=== PATIENT | male | born 1930 | race Caucasian/White ===

== ENCOUNTER 2017-11-02 08:19 | Emergency (ER) | payer MEDICARE, BC ==
[2017-11-02] MEDS ORDERED: Aspirin TAB* 325 MG PO ONE (09:14)
[2017-11-02 09:54] LABS: ABS Basophils 0.1 10^3/ul (0-0.2); ABS Eosinophils 0.1 10^3/ul (0-0.6); ABS Lymphocytes 0.8 10^3/ul (1.0-4.8); ABS Monocytes 0.6 10^3/ul (0-0.8); ABS Neutrophils 3.6 10^3/ul (1.5-7.7); ABS Nucleated RBC 0 10^3/ul; Hematocrit 33 % (42-52); Hemoglobin 11.1 g/dl (14.0-18.0); Mean Corpuscular HGB Conc 34 g/dl (31-36); Mean Corpuscular Hemoglobin 37 pg (27-31); Mean Corpuscular Volume 109 fL (80-94); Mean Platelet Volume 8 um3 (7.4-10.4); Nucleated Red Blood Cells % 0.1; Platelet Count 268 10^3/ul (150-450); Red Blood Count 2.99 10^6/ul (4.0-5.4); Red Cell Distribution Width 14 % (10.5-15); White Blood Count 5.3 10^3/ul (3.5-10.8)
--- NOTE | 2017-11-02 09:58 | RAD ---
Indication: Chest pain. Comparison: October 10, 2012 Technique: Upright AP 0922 hours Report: Suggestion of moderate subpulmonic RIGHT pleural effusion with associated basilar atelectasis. Inflammatory infiltrate at the opacified RIGHT lung base is not excluded. Clear LEFT lung and pleural space. Negative for pneumothorax. Negative for cardiomegaly. No significant abnormality of the central pulmonary vasculature accounting for RIGHT lung volume loss. IMPRESSION: Suggestion of moderate subpulmonic RIGHT pleural effusion with associated basilar atelectasis. Inflammatory infiltrate at the opacified RIGHT lung base is not excluded.
[2017-11-02 10:01] LABS: EGFR Non-African American 79.4 (>60)
[2017-11-02 10:03] LABS: INR 1.59 (0.77-1.02)
[2017-11-02 12:55] VITALS: BP 138/51
--- NOTE | 2017-11-02 17:45 | ED ---
Heriberto Bonilla Angela, scribed for Dionte Batres MD on 11/02/17 at 0856 . HPI Chest Pain - HPI Summary HPI Summary: This pt is a 86 y/o male presenting to [facility] c/o chest pain since 07:00 this morning. Pt notes he was already awake at onset of his chest pain. He describes his pain as pressure. He reports he needs to belch a lot. His chest pain is aggravated with movement. His pain is alleviated with putting pressure on chest. Denies nausea, diaphoresis, lightheadedness, LE swelling. Notes he has never had pain like this before. He has not taking anything for this chest pain. Pt is a pt of Dr. Hernandez'erick for "cardiac issues." He saw rn managed care last in early fall of 2016, had an EKG done. PCP is ILENE Mackay. - History of Current Complaint Chief Complaint: EDChestPainROMI Time Seen by Provider: 11/02/17 08:46 Hx Obtained From: Patient Onset/Duration: Started Hours Ago, Still Present Timing: Lasting Hours Current Severity: Moderate Pain Intensity: 4 Pain Scale Used: 0-10 Numeric Chest Pain Location: Diffuse Chest Pain Radiates: No Character: Pressure/Squeezing - Pressure Aggravating Factor(s): Movement Alleviating Factor(s): Other: - putting pressure on chest Associated Signs and Symptoms: Positive: Chest Pain, Other: - POS: belching. Negative: Lightheadedness, Diaphoresis, Nausea, Calf Pain/Swelling - Allergy/Home Medications Allergies/Adverse Reactions: Allergies Allergy/AdvReac Type Severity Reaction Status Date / Time No Known Allergies Allergy Verified 11/02/17 08:37 Home Medications: Home Medications Aspirin EC Low Dose* [Ecotrin EC Low Dose 81 MG*] 81 mg PO DAILY 11/02/17 [ History Confirmed 11/02/17] PMH/Surg Hx/FS Hx/Imm Hx Endocrine/Hematology History: Denies: Hx Diabetes Cardiovascular History: Reports: Hx Atrial Fibrillation, Hx Hypercholesterolemia , Hx Hypertension Infectious Disease History: No Infectious Disease History: Denies: Traveled Outside the [place] in Last 30 Days - Family History Known Family History: Negative: Cardiac Disease, Hypertension, Diabetes - Social History Alcohol Use: Rare Substance Use Type: Reports: None Smoking Status (MU): Never Smoked Tobacco Review of Systems Negative: Fever, Chills, Skin Diaphoresis Positive: Chest Pain Gastrointestinal: Other - belching Negative: Vomiting, Nausea Negative: Edema Neurological: Other - NEG: lightheadedness All Other Systems Reviewed And Are Negative: Yes Physical Exam - Summary Physical Exam Summary: Appearance: The patient is well-nourished in no acute distress and in no acute pain. Skin: The skin is warm and dry and skin color reflects adequate perfusion. HEENT: The head is normocephalic and atraumatic. The pupils are equal and reactive. The conjunctivae are clear and without drainage. Nares are patent and without drainage. Mouth reveals moist mucous membranes and the throat is without erythema and exudate. The external ears are intact. The ear canals are patent and without drainage. The tympanic membranes are intact. Neck: the neck is supple with full range of motion and non-tender. There are no carotid bruits. There is no neck vein distension. Respiratory: Chest is non-tender. Lungs are clear to auscultation and breath sounds are symmetrical and equal. Cardiovascular: Heart is regular rate and rhythm. Split S1 sound. There is no murmur or rub auscultated. There is no peripheral edema and pulses are symmetrical and equal. Abdomen: The abdomen is soft and non-tender. There are normal bowel sounds heard in all four quadrants and there is no organomegaly palpated. Musculoskeletal: There is no back tenderness noted. Extremities are non-tender with full range of motion. There is good capillary refill. There is no peripheral edema or calf tenderness elicited. Neurological: Patient is alert and oriented to person, place and time. The patient has symmetrical motor strength in all four extremities. Cranial nerves are grossly intact. Deep tendon reflexes are symmetrical and equal in all four extremities. Psychiatric: The patient has an appropriate affect and does not exhibit any anxiety or depression. Triage Information Reviewed: Yes Vital Signs On Initial Exam: Initial Vitals Temp Pulse Resp BP Pulse Ox 97.5 F 55 16 182/74 100 11/02/17 08:28 11/02/17 08:28 11/02/17 08:28 11/02/17 08:28 11/02/17 08:28 Vital Signs Reviewed: Yes Diagnostics - Vital Signs Vital Signs Temp Pulse Resp BP Pulse Ox 11/02/17 08:30 58 17 162/79 96 11/02/17 08:28 97.5 F 68 11 182/74 94 - Laboratory Lab Results: Lab Results 11/02/17 11/02/17 11/02/17 Range/Units 09:34 09:34 09:34 WBC 5.3 (3.5-10.8) 10^3/ul RBC 2.99 L (4.0-5.4) 10^6/ul Hgb 11.1 L (14.0-18.0) g/dl Hct 33 L (42-52) % MCV 109 H (80-94) fL MCH 37 H (27-31) pg MCHC 34 (31-36) g/dl RDW 14 (10.5-15) % Plt Count 268 (150-450) 10^3/ul MPV 8 (7.4-10.4) um3 Neut % (Auto) 68.8 (38-83) % Lymph % (Auto) 15.0 L (25-47) % Bleckley % (Auto) 12.1 H (1-9) % Eos % (Auto) 2.0 (0-6) % Baso % (Auto) 2.1 H (0-2) % Absolute Neuts (auto) 3.6 (1.5-7.7) 10^3/ul Absolute Lymphs (auto) 0.8 L (1.0-4.8) 10^3/ul Absolute Monos (auto) 0.6 (0-0.8) 10^3/ul Absolute Eos (auto) 0.1 (0-0.6) 10^3/ul Absolute Basos (auto) 0.1 (0-0.2) 10^3/ul Absolute Nucleated RBC 0 10^3/ul Nucleated RBC % 0.1 Differential Comment Cancelled Smudge Cells Cancelled Toxic Granulation Cancelled Dohle Bodies Cancelled Platelet Morphology Cancelled Giant Platelets Cancelled Polychromasia Cancelled Hypochromasia Cancelled Basophilic Stippling Cancelled Anisocytosis Cancelled Microcytosis Cancelled Macrocytosis Cancelled Spherocytes Cancelled Sickle Cells Cancelled Target Cells Cancelled Tear Drop Cells Cancelled Stomatocytes Cancelled Mcnamara-[place] Bodies Cancelled Kirstin Cells Cancelled Elliptocytes Cancelled Acanthocytes (Spur) Cancelled Rouleaux Cancelled Schistocytes Cancelled INR (Anticoag Therapy) (0.77-1.02) Sodium 136 (133-145) mmol/L Potassium 4.4 (3.5-5.0) mmol/L Chloride 106 (101-111) mmol/L Carbon Dioxide 25 (22-32) mmol/L Anion Gap 5 (2-11) mmol/L BUN 16 (6-24) mg/dL Creatinine 0.91 (0.67-1.17) mg/dL Est GFR ( Amer) 102.1 (>60) Est GFR (Non-Af Amer) 79.4 (>60) BUN/Creatinine Ratio 17.6 (8-20) Glucose 117 H (70-100) mg/dL Lactic Acid 0.9 (0.5-2.0) mmol/L Calcium 9.0 (8.6-10.3) mg/dL Total Bilirubin 1.40 H (0.2-1.0) mg/dL AST 16 (13-39) U/L ALT 14 (7-52) U/L Alkaline Phosphatase 82 (34-104) U/L Troponin I 0.00 (<0.04) ng/mL Total Protein 6.4 (6.4-8.9) g/dL Albumin 4.0 (3.2-5.2) g/dL Globulin 2.4 (2-4) g/dL Albumin/Globulin Ratio 1.7 (1-3) 11/02/17 11/02/17 Range/Units 09:34 12:11 WBC (3.5-10.8) 10^3/ul RBC (4.0-5.4) 10^6/ul Hgb (14.0-18.0) g/dl Hct (42-52) % MCV (80-94) fL MCH (27-31) pg MCHC (31-36) g/dl RDW (10.5-15) % Plt Count (150-450) 10^3/ul MPV (7.4-10.4) um3 Neut % (Auto) (38-83) % Lymph % (Auto) (25-47) % Bleckley % (Auto) (1-9) % Eos % (Auto) (0-6) % Baso % (Auto) (0-2) % Absolute Neuts (auto) (1.5-7.7) 10^3/ul Absolute Lymphs (auto) (1.0-4.8) 10^3/ul Absolute Monos (auto) (0-0.8) 10^3/ul Absolute Eos (auto) (0-0.6) 10^3/ul Absolute Basos (auto) (0-0.2) 10^3/ul Absolute Nucleated RBC 10^3/ul Nucleated RBC % Differential Comment Smudge Cells Toxic Granulation Dohle Bodies Platelet Morphology Giant Platelets Polychromasia Hypochromasia Basophilic Stippling Anisocytosis Microcytosis Macrocytosis Spherocytes Sickle Cells Target Cells Tear Drop Cells Stomatocytes Mcnamara-[place] Bodies Kirstin Cells Elliptocytes Acanthocytes (Spur) Rouleaux Schistocytes INR (Anticoag Therapy) 1.59 H (0.77-1.02) Sodium (133-145) mmol/L Potassium (3.5-5.0) mmol/L Chloride (101-111) mmol/L Carbon Dioxide (22-32) mmol/L Anion Gap (2-11) mmol/L BUN (6-24) mg/dL Creatinine (0.67-1.17) mg/dL Est GFR ( Amer) (>60) Est GFR (Non-Af Amer) (>60) BUN/Creatinine Ratio (8-20) Glucose (70-100) mg/dL Lactic Acid (0.5-2.0) mmol/L Calcium (8.6-10.3) mg/dL Total Bilirubin (0.2-1.0) mg/dL AST (13-39) U/L ALT (7-52) U/L Alkaline Phosphatase (34-104) U/L Troponin I 0.00 (<0.04) ng/mL Total Protein (6.4-8.9) g/dL Albumin (3.2-5.2) g/dL Globulin (2-4) g/dL Albumin/Globulin Ratio (1-3) Result Diagrams: 11/02/17 09:34 11/02/17 09:34 Lab Statement: Any lab studies that have been ordered have been reviewed, and results considered in the medical decision making process. - Radiology Chest XR Xray Interpretation: Positive (See Comments) - IMPRESSION: Suggestoin of moderate subpulmonic RIGHT pleural effusion with associated basilar atelectasis. Inflammatory infiltrate at the opacified RIGHT lung base is not excluded. Dr. Batres has reviewed this radiology report. Radiology Interpretation Completed By: Radiologist - EKG 08:23 Cardiac Rate: Bradycardia EKG Rhythm: Sinus Bradycardia - at 57 bpm Ectopy: PACs Chest Pain Course/Dx - Course Course Of Treatment: Mr. Hall presented with a left chest pressure for several hours. He denied any associated symptoms except the feeling that he needed to belch. The were no exacerbating or relieving factors. His initial W/ U was negative and I spoke with Dr. Hernandez who has seen him in the past. He was of the opinion that Mr. Hall could be safely D/C'd if se got a second troponin. The second trop was also 0 and Mr. Hall did feel better. He agreed to take it easy, F/U with Dr. Hernandez by calling tomorrow with his condition and return for any worsening or new symptoms. - Diagnoses Provider Diagnoses: Chest pain - Provider Notifications Discussed Care Of Patient With: Dev Hernandez Time Discussed With Above Provider: 10:26 Instructed by Provider To: Other - I discussed pt care with Dr. Hernandez, rn managed care. Discharge - Discharge Plan Condition: Stable Disposition: HOME Patient Education Materials: Chest Pain (ED) Referrals: Codie Pena [Primary Care Provider] - Dev Hernandez MD [Medical Doctor] - Additional Instructions: Please follow up with your rn managed care, Dr. Hernandez. RETURN TO THE ED FOR ANY WORSENING SYMPTOMS. The documentation as recorded by the Heriberto ramirez Angela accurately reflects the service I personally performed and the decisions made by me, Dionte Batres MD.
== END 2017-11-02 12:55 | disposition home or self-care (01) ==
LOC: ED 08:19
DX: R07.9 Chest pain, unspecified (principal)
CPT/HCPCS: 36415; 71045; 80053; 83605; 84484; 85025; 85610; 93005; 99284

== ENCOUNTER 2018-02-26 17:44 | Emergency (ER) | payer MEDICARE, BC ==
[2018-02-26 17:52] VITALS: BP 163/65
--- NOTE | 2018-02-26 18:00 | UC ---
Laceration HPI - HPI Summary HPI Summary: 87 y/o male presents to the urgent care accompany by c/o cutting his Rt arm s/p fall while going over a fence about 1 hr ago. Pt reports he was doing the yard work when he decided to go over the fence and fell on top of a tree branch and cut his Rt arm in different areas. Bedding stopped w/ pressure. Pain is 1/10 and he has FROM of his RT arm and RT elbow. Pt can't recalled when was his last Tetanus vaccine. Pt denies numbness or tinglin sensation over his arm or hand, SOB, chest pain, abdominal pain, N/V/D - History Of Current Complaint Chief Complaint: UCLaceration Stated Complaint: ARM LACERATION Time Seen by Provider: 02/26/18 17:58 Hx Obtained From: Patient Laceration Location: Arm - RT arm Mechanism Of Injury: Sharp Trauma Onset/Duration: Sudden Onset, Lasting Hours - 1 hr Severity: Mild Pain Intensity: 1 Pain Scale Used: 0-10 Numeric Aggravating Factors: Other: - touch Related History: Dominant Hand Right - Allergies/Home Medications Allergies/Adverse Reactions: Allergies Allergy/AdvReac Type Severity Reaction Status Date / Time No Known Allergies Allergy Verified 02/26/18 17:53 PMH/Surg Hx/FS Hx/Imm Hx Previously Healthy: Yes Endocrine History: Dyslipidemia Cardiovascular History: Cardiac Disease, Hypertension - Surgical History Surgical History: None - Family History Known Family History: Positive: None - Pt denies FMHX Negative: Cardiac Disease, Hypertension, Diabetes - Social History Occupation: Retired Lives: With Family Alcohol Use: Rare Substance Use Type: None Smoking Status (MU): Never Smoked Tobacco - Immunization History Most Recent Tetanus Shot: unknown Review of Systems Constitutional: Negative Skin: Bruising, Other - 4 superficial lacerations on the Rt arm s/p fall Eyes: Negative ENT: Negative Respiratory: Negative Cardiovascular: Negative Gastrointestinal: Negative Genitourinary: Negative Motor: Negative Neurovascular: Negative Musculoskeletal: Negative Neurological: Negative Psychological: Negative Is Patient Immunocompromised?: No All Other Systems Reviewed And Are Negative: Yes Physical Exam - Summary Physical Exam Summary: Vital Signs Reviewed: Yes General: well developed, well nourished female sitting in the examining table w/ o any apparent distress Eye Exam: Normal Eyes: Positive: Conjunctiva Clear - PERRLA, EOMI, fundi grossly normal ENT: Positive: Normal ENT inspection, Hearing grossly normal, Pharynx normal, TMs normal Neck: Positive: Supple, Nontender, No Lymphadenopathy Respiratory: Positive: Chest non-tender, Lungs clear, Normal breath sounds, No respiratory distress Cardiovascular: Positive: RRR, No Murmur, Pulses Normal, Brisk Capillary Refill Abdomen Description: Positive: Nontender, No Organomegaly, Soft. Negative: CVA Tenderness (R), CVA Tenderness (L) Bowel Sounds: Positive: Present Musculoskeletal: Positive: Strength Intact, ROM Intact, No Edema Neurological: Positive: Alert, Muscle Tone Normal Psychological Exam: Normal Skin: Positive: RT distal arm from ventral to dorsal side w/ 4 superficial lacerations w/ irregular shapes, about 4.0cm , 3.5cm , 4.5cm and 2.0cm in size w / surrounding abrasions,ecchymosis and bruising, mild tenderness to palpation. Some of them have skin avulsion. FROM of RT elbow, wrist, hand and shoulder. Sensation intact, capillary refill brisk, and pulses WNL. Triage Information Reviewed: Yes Vital Signs: Initial Vital Signs Temp 98.2 F 02/26/18 17:50 Pulse 51 02/26/18 17:50 Resp 18 02/26/18 17:50 BP 163/65 02/26/18 17:50 Pulse Ox 98 02/26/18 17:50 Laceration Repair - Laceration Repair 1 Description: Irregular - RT distal arm w/ 4 superficial lacerations irrgular in shape. Some w/ skin avulsion Laceration Size After Repair: Length (cm) - 4.0cm, 3.5cm, 4.5cm , 2.0cm Modified For Repair: No Cleansing Completed Via Routine Prep: Yes Irrigation With Pressure Irrigation Device: Yes Closure Material: Skin Adhesive, SteriStrips Closure Method: Single Layer Suture Of: Skin Laceration Course/Dx - Course/Dx Course Of Treatment: 87 y/o male presents to the urgent care accompany by c/o cutting his Rt arm s/p fall while going over a fence about 1 hr ago. Pt reports he was doing the yard work when he decided to go over the fence and fell on top of a tree branch and cut his Rt arm in different areas. Bledding stopped w/ pressure. Pain is 1/10 and he has FROM of his RT arm and RT elbow. Pt can't recalled when was his last Tetanus vaccine. Pt denies numbness or tinglin sensation over his arm or hand, SOB, chest pain, abdominal pain, N/V/D. Hx obtained. RT distal arm from ventral to dorsal side w/ 4 superficial lacerations w/ irregular shapes, about 4.0cm , 3.5cm , 4.5cm and 2.0cm in size w / surrounding abrasions,ecchymosis and bruising, mild tenderness to palpation. Some of them have skin avulsion on examination. LACERATION PROCEDURE NOTE: Copious irrigation was done with saline and the wound cleaned and explored. There was no FB or deep structure injury noted. Wounds cleaned w/ saline water and then w/ Iodine swabs. Abrasions cleaned w/ sterile water and bacitracin oint applied over and then cover w/ non adhesive gauze . The skin avulsions ans superficial lacerations were closed w/ skin adhesive and steristrips and then covered w/ sterile gauze. The Pt tolerated the procedure well without adverse effects. Neurovascular intact and FROM of RT arm. Tdap ordered and applied by nurse. Pt advised to applied Bacitracin ointment over abrasions and to take Tyelenol PO for pain. Rx Keflex PO if he develops any signs of infection. Pt advised if not improvement or worsening of symptcare to return to the urgent care or f/u w/ his PCP for further management and treatment. Pt's BP is elevated today advised to decrease salt in diet, monitor BP and f/u with PCP for further management. Pt understood and agreed and left the clinic ambulating , hemodynamically stable, A&Ox3. - Differential Dx - Laceration/Wound Differental Diagnoses: Abrasion, Avulsion, Laceration, Puncture Wound, Tendon Laceration Provider Diagnoses: 1- RT arm superficial lacerations repair s/p fall. 2- RT arm abrasions s/p fall. 3- Uncontrolled HTN Discharge - Sign-Out/Discharge Documenting (check all that apply): Discharge/Admit/Transfer - D/C home - Discharge Plan Condition: Stable Disposition: HOME Prescriptions: Cephalexin CAP* [Keflex CAP*] 500 mg PO QID #28 cap Patient Education Materials: Laceration (ED), Low-Sodium Diet (ED), Skin Adhesive Care (ED) Referrals: Roxann CRANE,Codie Santos [Primary Care Provider] - 3 Days Additional Instructions: 1-Please Keep wound clean and dry and cover w/ sterile gauze 2-Take Tylenol PO q6-8hrs prn for pain or swelling. Avoid strenuous exercise or too much flexion w/ your arm 3- If you develop fever or redness around your arm please start taken antibiotic Kelfex PO sent to the pharmacy or f/u w/ your PCP for further management 4-Your BP is elevated today. please decrease salt in your diet, monitor BP and if it continues to be elevated please f/u with your PCP for further management - Billing Disposition and Condition Condition: STABLE Disposition: HOME
[2018-02-26] MEDS ORDERED: Tetan/Diph/Pertus SYR(Tdap)* 0.5 ML SYR(BOOSTRIX) use SYR IM ONE (18:16)
[2018-02-26] MEDS ORDERED: Lidocaine 2% PF * 5 ML VIAL INJ ONE (18:17)
[2018-02-26] MEDS ORDERED: Gelfoam 12-7 ADSORBABL SPONGE* 1 EA SPONGE TOPICAL ONE (18:43)
== END 2018-02-26 19:39 | disposition home or self-care (01) ==
LOC: UCEAST 17:44
DX: S51.811A Laceration without foreign body of right forearm, initial encounter (principal); S50.811A Abrasion of right forearm, initial encounter; W17.89XA Other fall from one level to another, initial encounter; Y93.H9 Activity, other involving exterior property and land maintenance, building and construction; Y92.096 Garden or yard of other non-institutional residence as the place of occurrence of the external cause; I10 Essential (primary) hypertension; E78.5 Hyperlipidemia, unspecified; I11.9 Hypertensive heart disease without heart failure; Z23 Encounter for immunization
CPT/HCPCS: 12001; 12005; 90715; 99211; A9270-GY; G0463

== ENCOUNTER 2020-06-18 15:22 | Inpatient (IN) ==
[2020-06-18] MEDS ORDERED: Furosemide 40 mg/4 ml IV VIAL IV ONE ×2 (15:45→23:45)
[2020-06-18 16:51] LABS: Hematocrit 29 % (42-52); Hemoglobin 9.7 g/dL (14.0-18.0); Mean Corpuscular HGB Conc 34 g/dL (31-36); Mean Corpuscular Hemoglobin 38 pg (27-31); Mean Corpuscular Volume 113 fL (80-94); Mean Platelet Volume 8.2 fL (7.4-10.4); Platelet Count 385 10^3/uL (150-450); Red Blood Count 2.55 10^6 /uL (4.18-5.48); Red Cell Distribution Width 19 % (10-15)
[2020-06-18 17:12] LABS: Urine Appearance Clear; Urine Bilirubin Negative (Negative); Urine Blood Negative (Negative); Urine Color Yellow; Urine Glucose Negative (Negative); Urine Ketones Negative (Negative); Urine Nitrite Negative (Negative); Urine Protein Negative (Negative); Urine Specific Gravity 1.012 (1.010-1.030); Urine Urobilinogen Positive (Negative)
[2020-06-18 17:16] LABS: Albumin 4.2 g/dL (3.2-5.2); Albumin/Globulin Ratio 1.5 (1-3); BUN/Creatinine Ratio 25.3 (8-20); Calcium 9.1 mg/dL (8.6-10.3); EGFR African American 86.5 (>60); EGFR Non-African American 71.5 (>60); Globulin 2.8 g/dL (2-4); Total Bilirubin 2.1 mg/dL (0.2-1.0)
[2020-06-18 17:20] LABS: ABS Neutrophils 19.1 10^3/ul (1.5-7.7)
[2020-06-18 17:35] LABS: INR 1.78 (0.82-1.09)
[2020-06-18 17:46] LABS: C Reactive Protein 5.8 mg/L (<8.01); Magnesium 1.8 mg/dL (1.9-2.7)
[2020-06-18] MEDS ORDERED: Metoprolol Tartrate 5 mg VIAL 5 ml VIAL (1 mg/ml) IV ONE (17:54)
[2020-06-18] MEDS ORDERED: Magnesium Sulfate 2 gm BAG 2 GM/50 ML BAG IVPB ONE (17:57)
[2020-06-18] MEDS ORDERED: Diltiazem IV push/loading dose 5 MG/ML 5 ML vial (25 mg) IV SLOW PU ONE (18:06)
[2020-06-18] MEDS ORDERED: cefTRIAXone 2 GM ADDV.VIAL 2 GM in NS 0.9% 100 ml BAG 100 ML IVPB ONE (18:28)
[2020-06-18] MEDS ORDERED: NS 0.9% 500 ml BAG 500 ML IV ONE (20:43)
[2020-06-19 06:49] LABS: ABS Basophils 0.1 10^3/ul (0-0.2); ABS Lymphocytes 0.8 10^3/ul (1.0-4.8); ABS Monocytes 1.7 10^3/ul (0-0.8); ABS Neutrophils 24.9 10^3/ul (1.5-7.7); Hematocrit 23 % (42-52); Lymphocyte % 2.9 %; Mean Corpuscular HGB Conc 34 g/dL (31-36); Mean Corpuscular Hemoglobin 39 pg (27-31); Mean Corpuscular Volume 113 fL (80-94); Mean Platelet Volume 8.6 fL (7.4-10.4); Platelet Count 312 10^3/uL (150-450); Red Blood Count 2.08 10^6 /uL (4.18-5.48); Red Cell Distribution Width 19 % (10-15); White Blood Count 27.5 10^3/uL (3.5-10.8)
[2020-06-19 06:56] LABS: Anion Gap 7 mmol/L (2-11); BUN/Creatinine Ratio 24.6 (8-20); Blood Urea Nitrogen 29 mg/dL (6-24); CO2 Carbon Dioxide 26 mmol/L (22-32); Calcium 8.4 mg/dL (8.6-10.3); Chloride 100 mmol/L (101-111); EGFR African American 70.7 (>60); EGFR Non-African American 58.4 (>60); Glucose 125 mg/dL (70-100); Magnesium 2.2 mg/dL (1.9-2.7); Potassium 4.6 mmol/L (3.5-5.0); Sodium 133 mmol/L (135-145)
[2020-06-19] MEDS ORDERED: cefTRIAXone 1 gm/50 mL NS BAG 1 GM/50 ML BAG IVPB SCH ×2 (08:00→18:00)
[2020-06-19] MEDS ORDERED: NS 0.9% 500 ml BAG 500 ML IV ONE (08:29)
[2020-06-19] MEDS ORDERED: Clindamycin 900 MG/D5W BAG 900 MG/50 ML BAG IVPB SCH (09:00)
[2020-06-19 09:30] LABS: % Iron Saturation 11 % (15-55); Iron 32 ug/dL (50-212); LDH 173 U/L (140-271); Total Iron Binding Capacity 283 mcg/dL (250-450); Transferrin 202 mg/dL (203-362); Unsaturated Iron Binding < 268 ug/dL
[2020-06-19 09:51] LABS: Ferritin 472.5 ng/mL (24-336)
[2020-06-19 09:55] LABS: Vitamin B12 597 pg/mL (180-914)
[2020-06-19] MEDS ORDERED: Vancomycin 1,500 MG in NS 0.9% 250 ml 250 ML IVPB ONE (10:30)
[2020-06-19] MEDS: cefTRIAXone 2 GM ADDV.VIAL 2 GM in NS 0.9% 100 ml BAG 100 ML IV SCH (10:38)
[2020-06-19] MEDS ORDERED: Vancomycin per Pharmacy 1 EA NOTE FOLLOW UP PRN (10:49)
[2020-06-19 12:31] LABS: Corrected Retic Count 0.9 % (0.5-1.5); Hematocrit for Retic CNT 24 % (42-52); Immature Retic Fraction 0.51; RBC Retic Count 2.12 10^6/uL (4.18-5.48)
[2020-06-19 13:18] LABS: Body Fluid Source Pleural Fluid
[2020-06-19 15:53] LABS: Body Fluid Mono 31 %
[2020-06-20] MEDS ORDERED: NS 0.9% 250 ml 250 ML IV ONE ×3 (05:14→05:21)
[2020-06-20 06:11] LABS: ABS Basophils 0.1 10^3/ul (0-0.2); ABS Lymphocytes 0.8 10^3/ul (1.0-4.8); ABS Monocytes 1.2 10^3/ul (0-0.8); ABS Neutrophils 13.6 10^3/ul (1.5-7.7); Eosinophil % 0.2 %; Hematocrit 22 % (42-52); Hemoglobin 7.2 g/dL (14.0-18.0); Lymphocyte % 5.3 %; Mean Corpuscular HGB Conc 33 g/dL (31-36); Mean Corpuscular Hemoglobin 37 pg (27-31); Mean Corpuscular Volume 112 fL (80-94); Mean Platelet Volume 8.2 fL (7.4-10.4); Platelet Count 282 10^3/uL (150-450); Red Blood Count 1.96 10^6 /uL (4.18-5.48); Red Cell Distribution Width 19 % (10-15); White Blood Count 15.8 10^3/uL (3.5-10.8)
[2020-06-20 07:00] LABS: Calcium 8.4 mg/dL (8.6-10.3); Magnesium 2.2 mg/dL (1.9-2.7); Potassium 4.3 mmol/L (3.5-5.0)
[2020-06-20 07:06] LABS: EGFR African American 82.7 (>60); EGFR Non-African American 68.3 (>60)
[2020-06-20] MEDS ORDERED: Vancomycin 1,000 MG in NS 0.9% 250 ml 250 ML IV SCH (09:00)
[2020-06-20] MEDS: cefTRIAXone 2 GM ADDV.VIAL 2 GM in NS 0.9% 100 ml BAG 100 ML IV SCH (10:38)
[2020-06-20 19:55] LABS: Fluid Type, Glucose PLEURAL; Glucose, BF 145 mg/dL
[2020-06-20 20:00] LABS: Fluid Type, Protein, Total PLEURAL
[2020-06-20 20:29] LABS: Lactate Dehydrogenase, BF 88 U/L
[2020-06-21 07:08] LABS: ABS Basophils 0.1 10^3/ul (0-0.2); ABS Eosinophils 0.1 10^3/ul (0-0.6); ABS Lymphocytes 0.8 10^3/ul (1.0-4.8); ABS Monocytes 0.8 10^3/ul (0-0.8); ABS Neutrophils 6.2 10^3/ul (1.5-7.7); Eosinophil % 0.9 %; Hematocrit 24 % (42-52); Hemoglobin 8.4 g/dL (14.0-18.0); Mean Corpuscular HGB Conc 35 g/dL (31-36); Mean Corpuscular Hemoglobin 37 pg (27-31); Mean Corpuscular Volume 107 fL (80-94); Mean Platelet Volume 7.7 fL (7.4-10.4); Nucleated Red Blood Cells % 0.1; Platelet Count 256 10^3/uL (150-450); Red Blood Count 2.26 10^6 /uL (4.18-5.48); Red Cell Distribution Width 22 % (10-15)
[2020-06-21 07:13] LABS: Potassium 4.2 mmol/L (3.5-5.0)
[2020-06-21] MEDS: cefTRIAXone 2 GM ADDV.VIAL 2 GM in NS 0.9% 100 ml BAG 100 ML IV SCH (09:33)
[2020-06-21 09:34] LABS: BUN/Creatinine Ratio 29.6 (8-20); Calcium 8.5 mg/dL (8.6-10.3); EGFR African American 109.1 (>60); EGFR Non-African American 90.1 (>60); Magnesium 2.1 mg/dL (1.9-2.7)
[2020-06-22 05:40] LABS: ABS Basophils 0.1 10^3/ul (0-0.2); ABS Eosinophils 0.2 10^3/ul (0-0.6); ABS Lymphocytes 0.8 10^3/ul (1.0-4.8); ABS Monocytes 0.7 10^3/ul (0-0.8); ABS Neutrophils 3.7 10^3/ul (1.5-7.7); Hematocrit 25 % (42-52); Hemoglobin 8.9 g/dL (14.0-18.0); Lymphocyte % 14.7 %; Mean Corpuscular HGB Conc 35 g/dL (31-36); Mean Corpuscular Hemoglobin 38 pg (27-31); Mean Corpuscular Volume 108 fL (80-94); Mean Platelet Volume 8.5 fL (7.4-10.4); Nucleated Red Blood Cells % 0.1; Platelet Count 283 10^3/uL (150-450); Red Blood Count 2.35 10^6 /uL (4.18-5.48); Red Cell Distribution Width 21 % (10-15); White Blood Count 5.5 10^3/uL (3.5-10.8)
[2020-06-22 05:52] LABS: BUN/Creatinine Ratio 24.7 (8-20); Calcium 8.5 mg/dL (8.6-10.3); EGFR African American 115.6 (>60); EGFR Non-African American 95.6 (>60); Potassium 4.5 mmol/L (3.5-5.0)
[2020-06-22] MEDS ORDERED: Vancomycin Trough Check NOTE FOLLOW UP ONE (08:30)
[2020-06-22] MEDS ORDERED: Naloxone 0.4 mg VIAL 0.4 mg/ml 1 ml VIAL ONE (10:23)
[2020-06-22] MEDS ORDERED: fentaNYL 100 mcg/2 ml 50 MCG/ML VIAL ONE (10:23)
[2020-06-22] MEDS ORDERED: Midazolam 5 mg/5 ml VIAL 1 mg/ml 5 ml VIAL (5 mg) ONE (10:23)
[2020-06-22] MEDS ORDERED: Flumazenil 0.5 mg/5 ml 0.1 MG/ML 5 ml VIAL ONE (10:23)
[2020-06-22] MEDS: cefTRIAXone 2 GM ADDV.VIAL 2 GM in NS 0.9% 100 ml BAG 100 ML IV SCH (14:03)
[2020-06-22] MEDS: Lidocaine 2% JELLY 6 ML TOPICAL SCH (20:06)
[2020-06-22] MEDS: Neomycin/Polym/Bacit TOP OINT 15 GM TOPICAL SCH (20:06)
[2020-06-23 05:46] LABS: ABS Basophils 0.1 10^3/ul (0-0.2); ABS Eosinophils 0.1 10^3/ul (0-0.6); ABS Lymphocytes 0.8 10^3/ul (1.0-4.8); ABS Monocytes 0.7 10^3/ul (0-0.8); ABS Neutrophils 3.3 10^3/ul (1.5-7.7); Eosinophil % 2.3 %; Hematocrit 27 % (42-52); Hemoglobin 9.2 g/dL (14.0-18.0); Lymphocyte % 16.5 %; Mean Corpuscular HGB Conc 34 g/dL (31-36); Mean Corpuscular Hemoglobin 37 pg (27-31); Mean Corpuscular Volume 109 fL (80-94); Mean Platelet Volume 8.1 fL (7.4-10.4); Nucleated Red Blood Cells % 0.2; Platelet Count 291 10^3/uL (150-450); Red Blood Count 2.48 10^6 /uL (4.18-5.48); Red Cell Distribution Width 21 % (10-15)
[2020-06-23] MEDS: Neomycin/Polym/Bacit TOP OINT 15 GM TOPICAL SCH ×2 (08:00→21:08)
[2020-06-23] MEDS: Lidocaine 2% JELLY 6 ML TOPICAL SCH ×3 (08:06→21:01)
[2020-06-23] MEDS: cefTRIAXone 2 GM ADDV.VIAL 2 GM in NS 0.9% 100 ml BAG 100 ML IV SCH (09:24)
[2020-06-24] MEDS: cefTRIAXone 2 GM ADDV.VIAL 2 GM in NS 0.9% 100 ml BAG 100 ML IV SCH (09:25)
[2020-06-24] MEDS: Lidocaine 2% JELLY 6 ML TOPICAL SCH ×2 (09:27→13:52)
[2020-06-24] MEDS: Neomycin/Polym/Bacit TOP OINT 15 GM TOPICAL SCH (09:28)
[2020-06-24 15:37] VITALS: BP 82/50
== END 2020-06-24 18:10 | disposition home health service (06) | DRG 871 ==
LOC: ED 15:22 → MED 17:12 → MEDTELE 19:26
PROVIDERS: ADMIT Internal Medicine; ATTEND Internal Medicine